=== PATIENT | female | born 1985 | race African-American/Black ===

== ENCOUNTER 2018-03-02 04:59 | Emergency (ER) | payer OTHER ==
[2018-03-02 06:43] VITALS: BP 110/61; PULSE 93; TEMP 98.4; BMI 19.0
[2018-03-02] MEDS ORDERED: ONDANSETRON *ODT* 4 MG TABLET SL ONE (06:43)
--- NOTE | 2018-03-02 07:21 | PDOC ---
History of Present Illness - History of Present Illness Initial Comments: The patient is a 32 year old female, with no significant PMH, who presents to the emergency department today complaining of diarrhea, nausea, vomiting, and decreased urinary output for 3 days. Patient reports her symptoms began 3 days ago, when she began having diarrhea, with dark red blood in her stool. She states this only lasted for one day, and only occurred when trying to eat/ drink. Patient notes she also has had multiple episodes of nausea and vomiting , yellow in color, also exacerbated with any food or liquid intake. Patient reports a decrease in her urinary output. She notes she urinates about 5 times a day, but with minimal production (feeling as if she is going to urinate a lot , but only drops are produced). She states she stopped eating or drinking during this time, which has helped alleviate her symptoms. Patient reports associated dry mouth and chills. The patient denies chest pain, shortness of breath, headache and dizziness. Denies fever, constipation, dysuria, urgency and hematuria. Denies recent travel, raw meat or raw shellfish consumption. Allergies: NKA Past surgical history: Abdominal hernia repair Social history: No reported 03/02/18 08:40 <Deloris Hobbs - Last Filed: 03/02/18 16:23> - General History Source: Patient Exam Limitations: No Limitations <Rufina Ferreira - Last Filed: 03/04/18 09:30> - General Chief Complaint: Nausea/Vomiting Stated Complaint: VOMTING Time Seen by Provider: 03/02/18 07:20 Past History <Deloris Hobbs - Last Filed: 03/02/18 16:23> - Suicide/Smoking/Psychosocial Hx Smoking History: Never smoked Have you smoked in the past 12 months: No Information on smoking cessation initiated: No Hx Alcohol Use: No Drug/Substance Use Hx: No <Rufina Ferreira - Last Filed: 03/04/18 09:30> - Past Medical History Allergies/Adverse Reactions: Allergies Allergy/AdvReac Type Severity Reaction Status Date / Time No Known Allergies Allergy Verified 03/03/18 09:51 Home Medications: Ambulatory Orders Metoclopramide HCl [Reglan] 5 mg PO BID PRN #30 tablet 03/02/18 Vit 93/Iron Fum/Folic [ Formula Tablet] 1 each PO DAILY #60 tablet 03/02/18 Review of Systems - Review of Systems Comments:: GENERAL/CONSTITUTIONAL: +Chills. No chills. No weakness. HEAD, EYES, EARS, NOSE AND THROAT: +Dry mouth. No change in vision. No ear pain or discharge. No sore throat. CARDIOVASCULAR: No chest pain or shortness of breath. RESPIRATORY: No cough, wheezing, or hemoptysis. GASTROINTESTINAL: +Nausea. +Vomiting (yellow liquid in color). +Diarrhea with hematochezia (dark red blood). No constipation. GENITOURINARY: +Decreased urinary output. No dysuria, frequency, or hematuria. MUSCULOSKELETAL: No joint or muscle swelling or pain. No neck or back pain. SKIN: No rash NEUROLOGIC: No headache, vertigo, loss of consciousness, or change in strength/ sensation. ENDOCRINE: No increased thirst. No abnormal weight change. HEMATOLOGIC/LYMPHATIC: No anemia, easy bleeding, or history of blood clots. ALLERGIC/IMMUNOLOGIC: No hives or skin allergy. 03/02/18 08:40 <Deloris Hobbs - Last Filed: 03/02/18 16:23> *Physical Exam - Vital Signs Last Vital Signs Temp Pulse Resp BP Pulse Ox 98.4 F 93 H 18 110/61 100 03/02/18 06:13 03/02/18 06:13 03/02/18 06:13 03/02/18 06:13 03/02/18 06:13 - Physical Exam Comments: GENERAL: The patient is in no acute distress. HEAD: Normal with no signs of trauma. EYES: PERRLA, EOMI, sclera anicteric, conjunctiva clear. ENT: +Dry mucous membranes. Ears normal, nares patent, oropharynx clear without exudates. NECK: Normal range of motion, supple without lymphadenopathy, JVD, or masses. LUNGS: Breath sounds equal, clear to auscultation bilaterally. No wheezes, and no crackles. HEART:Regular rate and rhythm, normal S1 and S2 without murmur, rub or gallop. ABDOMEN: Soft, nontender, normoactive bowel sounds. No guarding, no rebound. No masses palpable. EXTREMITIES: Normal range of motion, no edema. No clubbing or cyanosis. No erythema, or tenderness. NEUROLOGICAL: Cranial nerves II through XII grossly intact. Normal speech. No focal neurological deficits. MUSCULOSKELETAL: Back non-tender to palpation, no CVA tenderness SKIN: Warm, Dry, normal turgor, no rashes or lesions noted. 03/02/18 08:40 <Deloris Hobbs - Last Filed: 03/02/18 16:23> - Vital Signs Last Vital Signs Temp Pulse Resp BP Pulse Ox 98.4 F 93 H 18 110/61 100 03/02/18 06:13 03/02/18 06:13 03/02/18 06:13 03/02/18 06:13 03/02/18 06:13 <Rufina Ferreira - Last Filed: 03/04/18 09:30> Moderate Sedation - Procedure Monitoring Vital Signs: Procedure Monitoring Vital Signs Temperature 98.4 F 03/02/18 06:13 Pulse Rate 93 H 03/02/18 06:13 Respiratory Rate 18 03/02/18 06:13 Blood Pressure 110/61 03/02/18 06:13 O2 Sat by Pulse Oximetry (%) 100 03/02/18 06:13 <Deloris Hobbs - Last Filed: 03/02/18 16:23> - Procedure Monitoring Vital Signs: Procedure Monitoring Vital Signs Temperature 98.4 F 03/02/18 06:13 Pulse Rate 93 H 03/02/18 06:13 Respiratory Rate 18 03/02/18 06:13 Blood Pressure 110/61 03/02/18 06:13 O2 Sat by Pulse Oximetry (%) 100 03/02/18 06:13 <Rufina Ferreira - Last Filed: 03/04/18 09:30> ED Treatment Course - LABORATORY CBC & Chemistry Diagram: 03/02/18 08:12 03/02/18 08:12 - ADDITIONAL ORDERS Additional order review: Laboratory Results 03/02/18 07:49 Urine HCG, Qual Positive 03/02/18 08:12 RBC 4.02 MCV 88.1 MCHC 35.9 RDW 13.1 MPV 7.7 Neutrophils % 66.4 Lymphocytes % 25.9 Monocytes % 6.8 Eosinophils % 0.3 Basophils % 0.6 - RADIOLOGY Radiograph Interpretation: EXAM#: TYPE/EXAM: RESULT: [id number] US/TRANSVAGINAL US PREG IMPRESSION: Twin gestation, as described above. Twin A estimated gestational age based on the crown-rump length is 6 weeks 3 days. heart activity was documented. Moderate size adjacent subchorionic hemorrhage is present. Twin B estimated gestational age is 6 weeks 1 day. No heart activity could be documented compatible with demise. Close follow-up obstetrical ultrasound is recommended for further evaluation. Simple cyst/corpus luteum cyst in the right ovary measuring 2 cm. Both ovaries appear otherwise unremarkable with normal vascular flow. Reported By: Gisele Jules MD 03/02/18 13:47 03/02/18 16:23 - Medications Given in the ED: ED Medications Discontinued Medications Generic Name Dose Route Start Last Admin Trade Name Freq PRN Reason Stop Dose Admin Ondansetron HCl 4 mg 03/02/18 06:43 03/02/18 07:23 Zofran Odt - SL 03/02/18 06:44 4 mg ONCE ONE Administration <Deloris Hobbs - Last Filed: 03/02/18 16:23> - LABORATORY CBC & Chemistry Diagram: 03/02/18 08:12 03/02/18 08:12 <Rufina Ferreira - Last Filed: 03/04/18 09:30> Medical Decision Making - Medical Decision Making 03/02/18 08:36 This is a 32 yo F who presents to the ER with a complaint of nausea, vomiting, inability to tolerate po Symptoms have been presents for the past 3 days Began with diarrhea and vomiting Now no more diarrhea Pt has not been able to tolerate po Each time she eats, she vomiting No fevers No ill contacts No actual abdominal pain in the ER No abd distention Flu swab sent already - negative Will do labs Will do IVF Will re assess 03/02/18 12:12 US still not read 03/02/18 17:13 I have called this patient about her US results US reveals - twin A + FHR, 170 bpm, (+) subchorionic hemorrhage twin B - no FHR seen Laboratory Tests 03/02/18 11:37 Blood Type O POSITIVE I have stressed the importance of PROMPT follow up with [facility] (within 48 hours) Pt given phone numbers to call [facility] She is calling now 03/04/18 09:30 <Rufina Ferreira - Last Filed: 03/04/18 09:30> *DC/Admit/Observation/Transfer - Attestations Scribe Attestion: Documentation prepared by LUKASZ Nuno, acting as medical appointment scheduler for Rufina Ferreira MD/DO. 03/02/18 08:41 <Deloris Hobbs - Last Filed: 03/02/18 16:23> - Discharge Dispostion Decision to Admit order: No <Rufina Ferreira - Last Filed: 03/04/18 09:30> Diagnosis at time of Disposition: Vomiting Qualifiers: Vomiting type: unspecified Vomiting Intractability: non-intractable Nausea presence: with nausea Qualified Code(s): R11.2 - Nausea with vomiting, unspecified Qualifiers: Weeks of gestation: unspecified Qualified Code(s): Z34.90 - Encounter for supervision of normal , unspecified, unspecified trimester - Discharge Dispostion Disposition: AGAINST MEDICAL ADVICE Condition at time of disposition: Fair - Prescriptions Prescriptions: Metoclopramide HCl [Reglan] 5 mg PO BID PRN #30 tablet PRN Reason: nausea and vomiting Vit 93/Iron Fum/Folic [ Formula Tablet] 1 each PO DAILY #60 tablet - Referrals Referrals: Marry Cihn MD [Staff Physician] - - Patient Instructions Printed Discharge Instructions: DI for -- Discomforts and Remedies, DI for Nausea -- Adult, DI for Vomiting -- Adult Additional Instructions: Thank you for coming in to the ER today Please be sure to follow up with an trim carpenter as you are Please follow up within 1 week Although you could not stay for an ultrasound you should call in order to get your results later today Please take medications prescribed for nausea Please stay hydrated - Post Discharge Activity Forms/Work/School Notes: Back to Work
[2018-03-02] MEDS ORDERED: SODIUM CHLORIDE 1,000 ML IV STA (07:58)
[2018-03-02 08:22] LABS: BASO % 0.6 % (0-2.0); EOS % 0.3 % (0-4.5); HEMATOCRIT 35.4 % (32.4-45.2); HEMOGLOBIN 12.7 GM/dL (10.7-15.3); LYMPH % 25.9 % (8-40); MCH 31.6 pg (25.7-33.7); MCHC 35.9 g/dl (32.0-36.0); MEAN CELL VOLUME 88.1 fl (80-96); MEAN PLT VOLUME 7.7 fl (7.5-11.1); MONO % 6.8 % (3.8-10.2); NEUT % 66.4 % (42.8-82.8); PLATELET COUNT 324 K/MM3 (134-434); RBC 4.02 M/mm3 (3.60-5.2); RDW 13.1 % (11.6-15.6); WHITE BLOOD COUNT 5.1 K/mm3 (4.0-10.0)
[2018-03-02 08:38] LABS: HCG,QUALITATIVE URINE Positive
[2018-03-02 08:45] LABS: URINE APPEARANCE CLEAR; URINE BILIRUBIN NEGATIVE (<2.0 mg/dL); URINE COLOR DKYELLOW; URINE GLUCOSE (UA) NEGATIVE (NEGATIVE); URINE KETONE 2+ (NEGATIVE); URINE LEUK ESTERASE NEGATIVE (NEGATIVE); URINE NITRITE NEGATIVE (NEGATIVE); URINE PROTEIN 1+ (NEGATIVE); URINE UROBILINOGEN 4.0 E.U/dl mg/dL (0.2-1.0)
[2018-03-02 09:00] LABS: ALK PHOS 58 U/L (45-117); ANION GAP 5 MMOL/L (8-16); BILIRUBIN,TOTAL 1.4 mg/dL (0.2-1); BLOOD UREA NITROGEN 12 mg/dL (7-18); CALCIUM 9.1 mg/dL (8.5-10.1); CHLORIDE 102 mmol/L (98-107); CO2 27 mmol/L (21-32); CREATININE 0.7 mg/dL (0.55-1.3); GLUCOSE,RANDOM 77 mg/dL (74-106); SGOT/AST 9 U/L (15-37); SGPT/ALT 15 U/L (13-61); SODIUM 135 mmol/L (136-145); TOT PROT 8.2 g/dl (6.4-8.2)
[2018-03-02 09:25] LABS: EPI CELLS RARE /HPF (FEW); URINE HYALINE CAST 1 /lpf; URINE MUCUS MANY
== END 2018-03-02 12:14 | disposition left against medical advice (07) ==
LOC: JER 04:59
PROC: 3E0337Z Introduction of Electrolytic and Water Balance Substance into Peripheral Vein, Percutaneous Approach (ICD-10-PCS; principal; 2018-03-02)
DX: O26.891 Other specified pregnancy related conditions, first trimester (principal); O30.001 Twin pregnancy, unspecified number of placenta and unspecified number of amniotic sacs, first trimester; Z3A.00 Weeks of gestation of pregnancy not specified; O34.81 Maternal care for other abnormalities of pelvic organs, first trimester; N83.291 Other ovarian cyst, right side; Z3A.01 Less than 8 weeks gestation of pregnancy
CPT/HCPCS: 36415; 76817-TC; 80053; 81003; 81015; 84702; 84703; 85025; 86850; 86900; 86901; 87086; 87804; 99283-25; J7030; Q0162

== ENCOUNTER 2018-03-03 09:47 | Emergency (ER) | payer OTHER ==
[2018-03-03 09:54] VITALS: BP 116/69; PULSE 82; TEMP 98.2; BMI 19.0
[2018-03-03 10:40] LABS: BASO % 0.8 % (0-2.0); EOS % 0.1 % (0-4.5); HEMATOCRIT 34.1 % (32.4-45.2); HEMOGLOBIN 12.4 GM/dL (10.7-15.3); LYMPH % 20.8 % (8-40); MCHC 36.5 g/dl (32.0-36.0); MEAN CELL VOLUME 87.6 fl (80-96); MEAN PLT VOLUME 7.7 fl (7.5-11.1); MONO % 5.4 % (3.8-10.2); NEUT % 72.9 % (42.8-82.8); PLATELET COUNT 334 K/MM3 (134-434); RBC 3.89 M/mm3 (3.60-5.2); RDW 13.1 % (11.6-15.6); WHITE BLOOD COUNT 5.3 K/mm3 (4.0-10.0)
--- NOTE | 2018-03-03 10:48 | PDOC ---
History of Present Illness - General Chief Complaint: Vaginal Bleeding Stated Complaint: VAGINAL BLEEDING Time Seen by Provider: 03/03/18 09:59 History Source: Patient Exam Limitations: No Limitations - History of Present Illness Travel History: No Initial Comments: 03/03/18 10:47 Patient is a 32 year old female with no Significant PMHx who was seen yesterday (03/02/18) for nausea, vomiting, diarrhea and found to be with twins. U /S was done and revealed twins with Twin B showing demise. Patient made an appointment to see the OBGYN at [address] [place] [address] for 1100. However, this morning , patient went to [address] [place] [address] and when she was waiting to see the OBGYN she has a large clot pass vaginally. Patient was advised to come to the emergency department immediately. Patient reports having nausea but denies any abdominal pain or cramping Patient otherwise denies any chest pain, palpitation, shortness of breath, fevers, chills, abdominal pain, diarrhea, acute vision changes, loss of consciousness, dysuria, frequency, hematuria. Patient unsure of when her LMP was. Reports this was not a planned Denies any recent travel PMHx: Denies PSHx: Abdominal hernia Repair Social Hx: Denies any drug use Denies any alcohol use Denies any smoking Allergies: NKDA OBGYN Hx: Unsure of last menstrual cycle Reports Menses every 3 weeks that last 5-6 days No history of STD or ectopic pregnancies Past History - Past Medical History Allergies/Adverse Reactions: Allergies Allergy/AdvReac Type Severity Reaction Status Date / Time No Known Allergies Allergy Verified 03/03/18 09:51 Home Medications: Ambulatory Orders Metoclopramide HCl [Reglan] 5 mg PO BID PRN #30 tablet 03/02/18 Vit 93/Iron Fum/Folic [ Formula Tablet] 1 each PO DAILY #60 tablet 03/02/18 COPD: No - Immunization History Immunization Up to Date: Yes - Suicide/Smoking/Psychosocial Hx Smoking History: Never smoked Have you smoked in the past 12 months: No Information on smoking cessation initiated: No Hx Alcohol Use: No Drug/Substance Use Hx: No Review of Systems - Review of Systems Constitutional: No: Chills, Diaphoresis, Fever HEENTM: No: Nose Congestion, Throat Pain Respiratory: No: Cough, Orthopnea, Shortness of Breath, SOB with Exertion, SOB at Rest, Wheezing, Productive cough Cardiac (ROS): No: Chest Pain, Lightheadedness, Palpitations, Syncope ABD/GI: Yes: Nausea, Vomiting. No: Constipated, Diarrhea, Difficulty Swallowing , Indigestion, Abdominal cramping : No: Burning, Dysuria, Discharge, Frequency, Flank Pain, Hematuria Musculoskeletal: No: Back Pain, Joint Pain, Neck Pain Integumentary: No: Bruising, Erythema, Pruritus, Rash Neurological: No: Headache, Numbness, Tingling, Tremors, Weakness, Dizziness *Physical Exam - Vital Signs Last Vital Signs Temp Pulse Resp BP Pulse Ox 98.2 F 82 16 116/69 100 03/03/18 09:51 03/03/18 09:51 03/03/18 09:51 03/03/18 09:51 03/03/18 09:51 - Physical Exam General Appearance: Yes: Other (Awake, alert , oriented x3, no acute distress ) HEENT: positive: EOMI, JONY, Normal ENT Inspection, Normal Voice, Symmetrical, TMs Normal, Pharynx Normal. negative: Tonsillar Exudate, Tonsillar Erythema, Rhinorrhea Neck: positive: Normal Thyroid, Supple. negative: Decreased range of motion, Lymphadenopathy (R), Lymphadenopathy (L) Respiratory/Chest: positive: Lungs Clear, Normal Breath Sounds. negative: Chest Tender, Respiratory Distress, Accessory Muscle Use, Decreased Breath Sounds, Crackles, Rales Cardiovascular: positive: Regular Rhythm, Regular Rate, S1, S2. negative: Edema , JVD, Murmur Gastrointestinal/Abdominal: positive: Other (Soft, nontender, nondistended, normoactive bowel sounds, no rebound tenderness or guarding ) Musculoskeletal: positive: Normal Inspection. negative: CVA Tenderness, CVA Tenderness (R), CVA Tenderness (L), Decreased Range of Motion Extremity: positive: Normal Capillary Refill, Normal Inspection, Normal Range of Motion. negative: Tender, Swelling, Calf Tenderness, Erythema Integumentary: positive: Normal Color, Dry, Warm Neurologic: positive: halftone operator II-XII NML intact, Fully Oriented, Alert, Normal Mood/ Affect, Normal Response, Motor Strength 5/5 Moderate Sedation - Procedure Monitoring Vital Signs: Procedure Monitoring Vital Signs Temperature 98.2 F 03/03/18 09:51 Pulse Rate 82 03/03/18 09:51 Respiratory Rate 16 03/03/18 09:51 Blood Pressure 116/69 03/03/18 09:51 O2 Sat by Pulse Oximetry (%) 100 03/03/18 09:51 ED Treatment Course - LABORATORY CBC & Chemistry Diagram: 03/03/18 10:27 03/03/18 10:20 - RADIOLOGY Radiology Studies Ordered: Category Date Time Status TRANSVAGINAL US PREG [US] Stat Ultrasound 03/03/18 10:45 Ordered Medical Decision Making - Medical Decision Making 03/03/18 11:15 Patient is a 32 year old female with no significant PMHx who presents here for vaginal bleeding/Clot that happened this morning around 0900. Patient was seen here yesterday for nausea, vomiting, abdominal pain and was found to be with twins. Transvaginal U/S revealed demise with Twin B. -Repeat U/S -CBC,CMP, BETA-HCG -U/A and urine culture -Type and screen 03/03/18 11:44 -U/S pending -Labs revealed bili 1.7, U/A with blood but no LE 03/03/18 13:36 -U/S unchanged from yesterday. Twins with one demise. -Call made out to [facility]. 03/03/18 13:51 -Dr. Gee recommended pelvic and bed rest. She will get a call from his office tomorrow for an appointment. -Will discharge patient *DC/Admit/Observation/Transfer Diagnosis at time of Disposition: Vaginal bleeding affecting early , demise due to miscarriage - Discharge Dispostion Disposition: HOME Condition at time of disposition: Stable Decision to Admit order: No - Referrals Referrals: Julio Gee MD [Staff Physician] - - Patient Instructions Additional Instructions: -You were seen here for vaginal bleeding and found to be with twins. However, you were also found to have a miscarriage with one of the twins. -Recommendation for pelvic rest and bed rest -Do not lift heavy objects -A referral will be given to you in your discharge paper for OBGYNDr. Gee. His information will be in your packet. His office will be giving you a call by tomorrow. -If you have worsening symptoms such as heavy vaginal bleeding, return to the emergency deprtment. - Post Discharge Activity Forms/Work/School Notes: Back to Work
[2018-03-03 10:57] LABS: URINE APPEARANCE CLEAR; URINE BILIRUBIN NEGATIVE (<2.0 mg/dL); URINE COLOR YELLOW; URINE GLUCOSE (UA) NEGATIVE (NEGATIVE); URINE KETONE 2+ (NEGATIVE); URINE LEUK ESTERASE NEGATIVE (NEGATIVE); URINE NITRITE NEGATIVE (NEGATIVE); URINE PROTEIN 1+ (NEGATIVE)
[2018-03-03 11:01] LABS: EPI CELLS RARE /HPF (FEW); URINE MUCUS MODERATE
[2018-03-03 11:36] LABS: ALBUMIN 3.6 g/dl (3.4-5.0); ALK PHOS 54 U/L (45-117); ANION GAP 7 MMOL/L (8-16); BILIRUBIN,TOTAL 1.7 mg/dL (0.2-1); BLOOD UREA NITROGEN 11 mg/dL (7-18); CALCIUM 8.7 mg/dL (8.5-10.1); CHLORIDE 102 mmol/L (98-107); CO2 24 mmol/L (21-32); CREATININE 0.6 mg/dL (0.55-1.3); GLUCOSE,RANDOM 82 mg/dL (74-106); POTASSIUM 3.8 mmol/L (3.5-5.1); SGOT/AST 12 U/L (15-37); SGPT/ALT 14 U/L (13-61); SODIUM 133 mmol/L (136-145); TOT PROT 7.4 g/dl (6.4-8.2)
--- NOTE | 2018-03-03 11:38 | PDOC ---
Attending Attestation - HPI HPI: 03/03/18 12:03 The patient is a 32 year old female, with no significant PMH, who presents to the emergency department from [facility] with vaginal bleeding/ large clot passed vaginally prior to arrival. The patient also endorses nausea without vomiting. The patient states she was seen yesterday for nausea, vomiting, diarrhea and found to be with 2 twins. The patient states an US was performed which showed Twin B showing demise. The patient states this was not a planned and is unsure of her LMP. The patient states she was visiting [facility] this morning for a follow up appointment when the vaginal bleeding/ clot episode occurred. Denies any recent travel. The patient denies chest pain, shortness of breath, headache and dizziness. Denies fever, chills, vomit, diarrhea and constipation. Denies dysuria, frequency, urgency and hematuria. Allergies: NKA Documentation prepared by Connor Wu, acting as medical assistant for Arden Randhawa MD. - Physicial Exam PE: 03/03/18 12:05 Vitals: Triage Vital signs reviewed General Appearance: no acute distress, well nourished well developed, Neck: Supple;No Nuchal rigidity Chest Wall: Nontender Cardiac: Regular rate and rhythm, no murmurs, no rubs, no gallops, Lungs: Clear to auscultation bilateral, good air movement bilaterally, Abdomen: Soft, nondistended, normal bowel sounds, nontender to palpation Rectal: Exam deferred Extremities: Full range of motion to all extremities, no cyanosis, clubbing, or edema Skin: Warm and dry, no rashes or lesions, no petechiae Psych: normal mood, normal affect <Connor Wu - Last Filed: 03/03/18 12:05> - Resident Resident Name: Priscilla Plummer - ED Attending Attestation I have performed the following: I have examined & evaluated the patient, The case was reviewed & discussed with the resident, I agree w/resident's findings & plan, Exceptions are as noted - Medical Decision Making 03/03/18 14:43 6 weeks twin gestation 1 demise same ultrasound is yesterday hCG rising Case discussed with [facility] will follow up closely as an outpatient recommend pelvic rest in the interim Find his, need for follow-up and strict return instructions discussed patient. <Arden Randhawa - Last Filed: 03/03/18 14:44>
== END 2018-03-03 14:15 | disposition home or self-care (01) ==
LOC: JER 09:47
DX: O26.891 Other specified pregnancy related conditions, first trimester (principal); O20.8 Other hemorrhage in early pregnancy; O30.001 Twin pregnancy, unspecified number of placenta and unspecified number of amniotic sacs, first trimester; O31.21X1 Continuing pregnancy after intrauterine death of one fetus or more, first trimester, fetus 1; Z3A.01 Less than 8 weeks gestation of pregnancy
CPT/HCPCS: 36415; 76817-TC; 80053; 81003; 81015; 84702; 85025; 86850; 86900; 86901; 99282-25

== ENCOUNTER 2018-03-26 10:49 | Emergency (ER) | payer OTHER ==
[2018-03-26 11:02] VITALS: BP 121/73; PULSE 84; TEMP 98.1; BMI 18.9
--- NOTE | 2018-03-26 11:08 | PDOC ---
History of Present Illness - General History Source: Patient Exam Limitations: No Limitations - History of Present Illness Initial Comments: 03/26/18 12:43 The patient is a 32-year-old female, , currently with prior u/s confirming twin , with no past medical history presents to the emergency department with vaginal bleeding. The patient reports she was seen at the ER for similar complain in February, at the visit states she was told she might lose the . The patient reports following up with Dr. Gee states she was confirmed 8 weeks and 3 days with twins at the visit. The patient reports having u/s since the visit, which has confirmed . The patient presents today with vaginal bleeding that started at 1:30 last night. The patient reports bleeding through 3 pads and around 2:30 states she passed a clot about the size of a little kids basketball. The patient reports associated symptoms of abdominal cramps, back pain, and blood in the urine. Denies dysuria, vaginal discharge, fever, chills, chest pain or SOB. The patient reports she sleeping with her 2-year-old son, who puts his head on her belly, denies any trauma. Allergies: NKDA Social history: None reported Surgical history: abdominal hernia repair. UNIFORM ATTENDANT: Dr. Gee, next appointment on the and 14 of April. <Lillie Márquez - Last Filed: 03/26/18 12:43> <Ade Salas - Last Filed: 03/26/18 13:41> - General Chief Complaint: Vaginal Bleeding Stated Complaint: VAGINAL BLEEDING Time Seen by Provider: 03/26/18 11:06 Past History <Lillie Márquez - Last Filed: 03/26/18 12:43> - Past Medical History COPD: No - Immunization History Immunization Up to Date: Yes - Suicide/Smoking/Psychosocial Hx Smoking History: Unknown if ever smoked Have you smoked in the past 12 months: No Hx Alcohol Use: No Drug/Substance Use Hx: No <Ade Salas - Last Filed: 03/26/18 13:41> - Past Medical History Allergies/Adverse Reactions: Allergies Allergy/AdvReac Type Severity Reaction Status Date / Time No Known Allergies Allergy Verified 03/26/18 11:00 Home Medications: Ambulatory Orders Vit 93/Iron Fum/Folic [ Formula Tablet] 1 each PO DAILY #60 tablet 03/02/18 Review of Systems - Review of Systems Able to Perform ROS?: Yes Comments:: 03/26/18 11:58 GENERAL/CONSTITUTIONAL: No fever or chills. No weakness. HEAD, EYES, EARS, NOSE AND THROAT: No change in vision. No ear pain or discharge. No sore throat. CARDIOVASCULAR: No chest pain or shortness of breath. RESPIRATORY: No cough, wheezing, or hemoptysis. GASTROINTESTINAL: No nausea, vomiting, diarrhea or constipation. GENITOURINARY: +vaginal bleeding and abdominal cramping. No dysuria, frequency, or change in urination. MUSCULOSKELETAL: No joint or muscle swelling or pain. No neck or back pain. SKIN: No rash NEUROLOGIC: No headache, vertigo, loss of consciousness, or change in strength/ sensation. ENDOCRINE: No increased thirst. No abnormal weight change. HEMATOLOGIC/LYMPHATIC: No anemia, easy bleeding, or history of blood clots. ALLERGIC/IMMUNOLOGIC: No hives or skin allergy. <Lillie Márquez - Last Filed: 03/26/18 12:43> *Physical Exam - Vital Signs Last Vital Signs Temp Pulse Resp BP Pulse Ox 98.1 F 84 20 121/73 98 03/26/18 11:01 03/26/18 11:01 03/26/18 11:01 03/26/18 11:01 03/26/18 11:01 - Physical Exam Comments: 03/26/18 11:57 GENERAL: Awake, alert, and fully oriented, in no acute distress HEAD: No signs of trauma EYES: PERRLA, EOMI, sclera anicteric, conjunctiva clear ENT: Auricles normal inspection, hearing grossly normal, nares patent, oropharynx clear without exudates. Moist mucosa NECK: Normal ROM, supple, no lymphadenopathy, JVD, or masses LUNGS: Breath sounds equal, clear to auscultation bilaterally. No wheezes, and no crackles HEART: Regular rate and rhythm, normal S1 and S2, no murmurs, rubs or gallops ABDOMEN: Soft, nontender, normoactive bowel sounds. No CVA tenderness. No guarding, no rebound. No masses Pelvic exam: +dark red blood in the vaginal vault and coming out from the cervix , cervix is closed. Os closed and no CMT. EXTREMITIES: No lower extremity edema. Normal range of motion, no edema. No clubbing or cyanosis. No cords, erythema, or tenderness NEUROLOGICAL: Cranial nerves II through XII grossly intact. Normal speech, normal gait SKIN: Warm, Dry, normal turgor, no rashes or lesions noted. <Lillie Márquez - Last Filed: 03/26/18 12:43> - Vital Signs Last Vital Signs Temp Pulse Resp BP Pulse Ox 98.1 F 84 20 121/73 98 03/26/18 11:01 03/26/18 11:01 03/26/18 11:01 03/26/18 11:01 03/26/18 11:01 <Ade Salas - Last Filed: 03/26/18 13:41> Moderate Sedation - Procedure Monitoring Vital Signs: Procedure Monitoring Vital Signs Temperature 98.1 F 03/26/18 11:01 Pulse Rate 84 03/26/18 11:01 Respiratory Rate 20 03/26/18 11:01 Blood Pressure 121/73 03/26/18 11:01 O2 Sat by Pulse Oximetry (%) 98 03/26/18 11:01 <Lillie Márquez - Last Filed: 03/26/18 12:43> - Procedure Monitoring Vital Signs: Procedure Monitoring Vital Signs Temperature 98.1 F 03/26/18 11:01 Pulse Rate 84 03/26/18 11:01 Respiratory Rate 20 03/26/18 11:01 Blood Pressure 121/73 03/26/18 11:01 O2 Sat by Pulse Oximetry (%) 98 03/26/18 11:01 <Ade Salas - Last Filed: 03/26/18 13:41> ED Treatment Course - LABORATORY CBC & Chemistry Diagram: 03/26/18 11:19 03/26/18 11:19 - ADDITIONAL ORDERS Additional order review: 03/26/18 11:19 RBC 3.07 L MCV 89.3 MCHC 35.8 RDW 13.2 MPV 7.6 Neutrophils % 84.3 H D Lymphocytes % 10.6 D Monocytes % 4.2 Eosinophils % 0.6 Basophils % 0.3 <Lillie Márquez - Last Filed: 03/26/18 12:43> - LABORATORY CBC & Chemistry Diagram: 03/26/18 11:19 03/26/18 11:19 <Ade Salas - Last Filed: 03/26/18 13:41> Medical Decision Making - Medical Decision Making 03/26/18 11:51 a/p: 32yo female at 8 weeks gestation with a twin preg with vaginal bleeding and clots since last night -states cramping -passing clots and dark red blood -low back pain -no dysuria -concern for threatened ab -will send labs, O+ on 3 prior blood types, tvus -will monitor and reassess 03/26/18 13:38 labs reviewed beta [id number] tvus shows missed ab discussed labs and ultrasound discussed need for repeat beta in 1 week discussed follow up with ONLINE PROGRAM COORDINATOR. <Ade Salas - Last Filed: 03/26/18 13:41> *DC/Admit/Observation/Transfer - Attestations Scribe Attestion: 03/26/18 11:58 Documentation prepared by Lillie Márquez, acting as bilingual medical assistant for Ade Salas DO. <Lillie Márquez - Last Filed: 03/26/18 12:43> - Discharge Dispostion Decision to Admit order: No - Attestations Physician Attestion: 03/26/18 12:41 I, Dr. Ade Salas DO, attest that this document has been prepared under my direction and personally reviewed by me in its entirety. I further attest, that it accurately reflects all work, treatment, procedures and medical decision -making performed by me. <Ade Salas - Last Filed: 03/26/18 13:41> Diagnosis at time of Disposition: Missed - Discharge Dispostion Disposition: HOME Condition at time of disposition: Stable - Referrals Referrals: Julio Gee MD [Staff Physician] - - Patient Instructions Printed Discharge Instructions: Dealing With Miscarriage, Miscarriage Additional Instructions: Please make an appointment to see your ONLINE PROGRAM COORDINATOR on Wednesday or Wednesday. Please return to the ED with any further concerns or complaints. Please return to the ED if you bleed through more than 2 pads an hour for more than 2 hours.
[2018-03-26 11:31] LABS: BASO % 0.3 % (0-2.0); EOS % 0.6 % (0-4.5); HEMATOCRIT 27.4 % (32.4-45.2); HEMOGLOBIN 9.8 GM/dL (10.7-15.3); LYMPH % 10.6 % (8-40); MCHC 35.8 g/dl (32.0-36.0); MEAN CELL VOLUME 89.3 fl (80-96); MEAN PLT VOLUME 7.6 fl (7.5-11.1); MONO % 4.2 % (3.8-10.2); NEUT % 84.3 % (42.8-82.8); PLATELET COUNT 208 K/MM3 (134-434); RBC 3.07 M/mm3 (3.60-5.2); RDW 13.2 % (11.6-15.6); WHITE BLOOD COUNT 9.4 K/mm3 (4.0-10.0)
[2018-03-26 12:07] LABS: HCG,QUALITATIVE URINE Positive
[2018-03-26 12:37] LABS: URINE APPEARANCE SLCLOUDY; URINE BILIRUBIN NEGATIVE (<2.0 mg/dL); URINE COLOR YELLOW; URINE GLUCOSE (UA) NEGATIVE (NEGATIVE); URINE KETONE NEGATIVE (NEGATIVE); URINE LEUK ESTERASE TRACE (NEGATIVE); URINE NITRITE NEGATIVE (NEGATIVE); URINE PROTEIN NEGATIVE (NEGATIVE); URINE UROBILINOGEN NEGATIVE mg/dL (0.2-1.0)
[2018-03-26 12:42] LABS: ALBUMIN 3.3 g/dl (3.4-5.0); ALK PHOS 55 U/L (45-117); ANION GAP 8 MMOL/L (8-16); BILIRUBIN,TOTAL 0.5 mg/dL (0.2-1); BLOOD UREA NITROGEN 8 mg/dL (7-18); CALCIUM 8.5 mg/dL (8.5-10.1); CHLORIDE 104 mmol/L (98-107); CO2 25 mmol/L (21-32); CREATININE 0.6 mg/dL (0.55-1.3); GLUCOSE,RANDOM 76 mg/dL (74-106); POTASSIUM 3.6 mmol/L (3.5-5.1); SGOT/AST 8 U/L (15-37); SGPT/ALT 18 U/L (13-61); SODIUM 137 mmol/L (136-145); TOT PROT 6.7 g/dl (6.4-8.2)
[2018-03-26 12:46] LABS: EPI CELLS RARE /HPF (FEW); URINE MUCUS RARE
== END 2018-03-26 13:51 | disposition home or self-care (01) ==
LOC: JER 10:49
DX: O26.891 Other specified pregnancy related conditions, first trimester (principal); O02.1 Missed abortion; Z3A.08 8 weeks gestation of pregnancy
CPT/HCPCS: 36415; 76817-TC; 80053; 81003; 81015; 84702; 84703; 85025; 99283-25